=== PATIENT | female | born 1980 | race Caucasian/White ===

== ENCOUNTER → 2017-05-06 | Outpatient (CLI) | payer OTHER ==
[~2017-05-06] MED LIST: IBUP200T5 PO; MELATONIN PO; MULT-516 PO
== END | disposition home or self-care (01) ==
LOC: CFH 12:39
PROVIDERS: ATTEND Physician Assistant
DX: S82.832A Other fracture of upper and lower end of left fibula, initial encounter for closed fracture (principal); M19.072 Primary osteoarthritis, left ankle and foot; M25.775 Osteophyte, left foot; M25.472 Effusion, left ankle; M25.475 Effusion, left foot; X58.XXXA Exposure to other specified factors, initial encounter; Y93.89 Activity, other specified; Y92.89 Other specified places as the place of occurrence of the external cause; Y99.8 Other external cause status